=== PATIENT | female | born 1955 | race Caucasian/White ===

== ENCOUNTER 2016-12-14 15:03 | Inpatient (IN) | payer BC ==
--- NOTE | ~2016-12-14 | CN ---
Consultation Report [facility] [address] [place]. [address] NAME: SABRINA DEAN : 59 STATUS : ADM IN PAT#: [id number] AGE: 61 ADM/REG DATE : 12/14/16 MR#: [id number] REPORT SERV DATE: 12/16/16 DICTATED BY: VANESSA BARRY DATE: 12/15/16 REPORT STATUS : Draft TRANSCRIBED BY: MODL DATE: 12/15/16 EP CONSULTATION DATE OF CONSULTATION: 12/15/2016 INDICATIONS: Repetitive monomorphic ventricular tachycardia. HISTORY: The patient is a 61-year-old white female, sees primary care doctor, Dr. Flaquita Elliott, who noted the onset of tachy palpitations three weeks ago. She states they would occasionally result in a cough or give her a warm feeling but a week ago, she was at mass and had an episode that ran away. She wore a Holter monitor, which indicated recurrent episodes of nonsustained ventricular tachycardia. She underwent coronary angiogram 12/15/2016, which showed no fixed coronary disease. Her Holter monitor showed a PVC density of 20%. She has no other medical issues except some mild depression. CURRENT HOME MEDICATIONS: Lorazepam 0.25 at bedtime, Wellbutrin 300 q.a.m., dicyclomine 10 p.r.n., diphenhydramine 25 at bedtime p.r.n., fexofenadine 180 a day, Visine tear drops, meloxicam 15 per day, and Naprosyn 220 a day. ALLERGIES OR INTOLERANCES: Unknown. 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 She has never used tobacco products. She may have a beer occasionally. She does drink two cups of caffeinated coffee per day. FAMILY HISTORY: She has a brother and a sister with hypertension. Both father and mother had hypertension. Father had diabetes. Her parents were killed in a car accident when her mother was 70 and father 74, so there was no known medical history in their older ages. PAST MEDICAL HISTORY/REVIEW OF SYSTEMS: Unremarkable except for the current cardiac history. PHYSICAL EXAMINATION: GENERAL: A 61-year-old white female, pleasant, no acute distress. VITAL SIGNS: Blood pressure 128/80, pulse 60 and regular, respirations 18. SKIN: No xanthelasmas. HEENT: She is normocephalic. There is no pallor. Sclerae white. JVD is not elevated. CHEST: No crackles. CARDIAC: S1 normal, S2 physiologic. ABDOMEN: Soft. EXTREMITIES: Without edema. No clubbing. NEUROLOGIC: No focal deficits. LABORATORY DATA: ECG shows monomorphic PVCs with a transition zone between V2 and V3, suggestive of a right ventricular outflow tract origin. Echocardiogram during PVCs showed a calculated EF of 45%, although I suspect it is larger than that. As mentioned, her Consultation Report [address] [address] NAME: SABRINA DEAN : 59 STATUS : ADM IN [facility]#: [id number] AGE: 61 ADM/REG DATE : 12/14/16 MR#: [id number] REPORT SERV DATE: 12/16/16 DICTATED BY: VANESSA BARRY DATE: 12/15/16 REPORT STATUS : Draft TRANSCRIBED BY: KALYANI DATE: 12/15/16 catheterization showed normal coronaries. DISPOSITION: Plan trial of flecainide, overnight she will be in a monitored setting, further recommendations forthcoming. ARNOL/KALYANI Vanessa Barry M.D. / [id number] CC: Jeremy Espinosa Jr., M.D. [facility]
--- NOTE | ~2016-12-14 | DS ---
Discharge Summary [facility] [address] [place]. [address] NAME: SABRINA DEAN : 59 STATUS : DIS IN PAT#: [id number] AGE: 61 ADM/REG DATE : 12/14/16 MR#: [id number] REPORT SERV DATE: 12/30/16 DICTATED BY: RISHABH NORIEGA DATE: 12/30/16 REPORT STATUS : Draft TRANSCRIBED BY: KALYANI DATE: 12/30/16 Data Collection from hospitalization DISCHARGE DIAGNOSES: 1. Premature ventricular contraction/ventricular tachycardia. 2. Depression. CONSULTATIONS: Tip Barry M.D. PROCEDURES: 1. Cardiac catheterization, 12/15/2016. 2. Ablation/electrophysiology study, 12/19/2016. 3. CT scan of the chest without contrast, 12/19/2016. DISCHARGE MEDICATIONS: 1. Xanax 0.25 mg at bedtime and 0.25 mg x1 dose. 2. Aspirin 81 mg daily. 3. Lipitor 20 mg at bedtime. 4. Wellbutrin XL 300 mg every morning. 5. Mobic 15 mg daily as needed. 6. Bentyl 10 mg daily as needed. 7. Rosalie 180 mg daily as needed. 8. Aleve 220 mg daily as needed. 9. Visine Tears one drop daily. 10.Benadryl 25 mg at bedtime as needed. 11.Coreg 3.125 mg twice a day. 12.Prilosec 20 mg twice a day. CONDITION AT DISCHARGE: Stable. DISPOSITION: The patient was discharged home on a low-sodium, low-cholesterol, cardiac diet with activities as instructed. She would follow up with Dr. Tip Barry on 03/06/2017, and with Dr. Espinosa on 01/17/2017. HOSPITAL COURSE: This is a 61-year-old female who had some chest pain and palpitations. She said that three weeks prior to this admission she began having palpitations that has persisted. She also developed precordial chest pain that was a left-sided pressure-like sensation. Her palpitations and chest pain both worsened over the weekend prior to admission. She just turned in a Holter monitor which revealed recurrent episodes of nonsustained ventricular tachycardia with rates greater than 150 beats per minute. She denied syncope or presyncope. She did have some intermittent shortness of breath with these episodes. The patient was admitted to the hospital at this time for further evaluation and treatment. Upon admission, she was going to be started on heparin weight-based protocol. Echocardiography would be checked for structural heart abnormalities. It was felt that the patient would need to undergo cardiac catheterization and possible percutaneous intervention. The following day, she was taken to the cardiac geochemical laboratory technician where she underwent Discharge Summary [address] [place]. [address] NAME: SABRINA DEAN : 59 STATUS : DIS IN PAT#: [id number] AGE: 61 ADM/REG DATE : 12/14/16 MR#: [id number] REPORT SERV DATE: 12/30/16 DICTATED BY: RISHABH NORIEGA DATE: 12/30/16 REPORT STATUS : Draft TRANSCRIBED BY: KALYANI DATE: 12/30/16 the above-mentioned procedure by Dr. Espinosa. She tolerated this well and there were no complications. She was seen by Dr. Tip Barry regarding repetitive monomorphic ventricular tachycardia. The coronary angiogram showed no fixed coronary disease. Her Holter monitor showed a PVC density of 20%. She had no other medical issues except for some mild depression. ECG showed monomorphic PVCs with a transition zone between V2 and V3 suggestive of right ventricular outflow tract origin. Echocardiogram during PVCs showed calculated ejection fraction of 45%, although it was suspected that it was larger than that. We planned a trial of flecainide and overnight she would be in a monitored setting. Further recommendations will be forthcoming. The following day, she was stable. She still had palpitations and shortness of breath. Urinalysis had revealed E. coli. Bactrim was started. There had been failure of flecainide. Medications were adjusted. On 12/17/2016 she continued to have nonsustained ventricular tachycardia. She had some nausea with Cardizem. She was placed on procainamide and developed hypotension. She was presyncopal with hypotension. On 12/19/2016, she had no chest pain or shortness of breath. She was anxious. Her recurrent nonsustained ventricular tachycardia was refractory to flecainide, refractory to calcium channel doris and beta-doris. She was currently on procainamide. It was felt that the patient may need to undergo electrophysiology study with radiofrequency ablation. She agreed to proceed. The patient was taken to the Electrophysiology Laboratory where she underwent the above-mentioned electrophysiology study and ablation. She tolerated this well, and there were no complications. She was in a sinus rhythm. Discharge planning was performed. On 12/20/2016, she felt well. She was alert and cooperative. Her lungs were clear. She had no edema. She remained in a sinus rhythm. Discharge instructions were given. Due to her improved and stable condition, she was discharged home with the above- stated instructions. Information collected by: Aliya Lacey I submit the above information as my discharge summary. TG/MODL Rishabh Noriega M.D. / [id number] CC: Jeremy Espinosa Jr., M.D. David Wendt, M.D.
[2016-12-14] MEDS ORDERED: MOBIC15 MG PO (18:09)
[2016-12-14] MEDS ORDERED: WELLXL300 PO (18:09)
[2016-12-14] MEDS ORDERED: X25 PO ×2 (18:10→18:12)
[2016-12-14] MEDS ORDERED: BENTYL10 PO (18:10)
[2016-12-14] MEDS ORDERED: ALLEGRA180 PO (18:13)
[2016-12-14] MEDS ORDERED: ALEVE220 MG PO (18:13)
[2016-12-14] MEDS ORDERED: VISINE TEARS15 ML OPH (18:14)
[2016-12-14] MEDS ORDERED: BEN25 PO (18:16)
[2016-12-14 18:26] LABS: BASOPHILS 0.5 %; BASOPHILS ABSOLUTE 0.03 10/3/uL (0.0-0.16); EOSINOPHILS 2.5 %; EOSINOPHILS ABSOLUTE 0.14 10/3/uL (0.0-0.53); HEMATOCRIT 40.7 % (36.0-48.0); HEMOGLOBIN 14.1 g/dL (12.0-16.0); IMMATURE GRANULOCYTES 0.4 %; IMMATURE GRANULOCYTES ABSOLUTE 0.02 10/3/uL (0.0-0.11); LYMPHOCYTES 30.3 %; MANUAL DIFF NO %; MEAN CORPUS HGB CONC 34.6 g/dL (32.0-36.0); MEAN CORPUSCULAR HEMOGLOB 33.3 pg (26.0-34.0); MEAN CORPUSCULAR VOLUME 96.2 fL (80-100); MEAN PLATELET VOLUME 12.5 fL (9.2-13.0); MONOCYTES 9.1 %; MONOCYTES ABSOLUTE 0.51 10/3/uL (0.21-1.20); NEUTROPHILS 57.2 %; NEUTROPHILS ABSOLUTE 3.21 10/3/uL (2.02-8.40); PLATELET COUNT 162 10/3/uL (150-400); RBC DISTRIBUTION WIDTH 12.5 % (12.0-16.0); RED CELL COUNT 4.23 10/6/uL (4.0-5.6); WHITE BLOOD CELLS 5.6 10/3/uL (4.5-10.5)
[2016-12-14 18:46] LABS: ASCORBIC ACID (UR NOT ORDER) NEG (NEG); BILIRUBIN, URINE NEGATIVE (NEG); KETONE, URINE TRACE MG/DL (NEG); LEUKOCYTE ESTERASE(NOT OR LARGE (NEG); WBC (NOT ORDERED) (RFLEX) 7 (0-5)
[2016-12-14 18:53] LABS: BUN (BLOOD UREA NITROGEN) 19 MG/DL (6-23); CALCIUM, SERUM 9.3 MG/DL (8.5-10.4); CHLORIDE, SERUM 108 MMOL/L (96-112); CHOL/HDL RATIO(NOT ORDER) 3.4 (0-5); CHOLESTEROL 162 MG/DL (< 200); CO2 (CARBON DIOXIDE) 29 MMOL/L (24-34); CREATININE 0.76 MG/DL (0.55-1.02); GFR AFRICAN AMERICAN 100 ML/MIN (>=60); GFR NON AFRICAN AMERICAN 86 ML/MIN (>=60); GLUCOSE, SERUM 87 MG/DL (60-99); HDL CHOLESTEROL 47 MG/DL (> 49); LDL CHOLESTEROL 91 MG/DL (< 130); NON-HDL CHOLESTEROL 115 MG/DL (< 160); SODIUM, SERUM 144 MMOL/L (135-148); TRIGLYCERIDE 123 MG/DL (< 150); TROPONIN I <0.02 NG/ML (<0.05)
[2016-12-14 18:59] LABS: POTASSIUM, SERUM 4.3 MMOL/L (3.5-5.3)
[2016-12-14 20:10] LABS: INTERNATIONAL NORMAL RATI 1.1 UNITS (-); PROTIME (NOT ORD) 13.6 SEC (12.0-14.5)
[2016-12-14 20:17] LABS: PARTIAL THROMBO TIME 115.7 SEC (22.5-37.2)
[2016-12-15 04:15] LABS: BUN (BLOOD UREA NITROGEN) 22 MG/DL (6-23); CALCIUM, SERUM 8.4 MG/DL (8.5-10.4); CHLORIDE, SERUM 110 MMOL/L (96-112); CO2 (CARBON DIOXIDE) 27 MMOL/L (24-34); GFR AFRICAN AMERICAN 94 ML/MIN (>=60); GFR NON AFRICAN AMERICAN 81 ML/MIN (>=60); GLUCOSE, SERUM 102 MG/DL (60-99); POTASSIUM, SERUM 3.7 MMOL/L (3.5-5.3); SODIUM, SERUM 145 MMOL/L (135-148)
[2016-12-16 04:01] LABS: BASOPHILS 0.2 %; BASOPHILS ABSOLUTE 0.01 10/3/uL (0.0-0.16); EOSINOPHILS 4.1 %; EOSINOPHILS ABSOLUTE 0.18 10/3/uL (0.0-0.53); HEMOGLOBIN 13.7 g/dL (12.0-16.0); LYMPHOCYTES 29.5 %; LYMPHOCYTES ABSOLUTE 1.31 10/3/uL (0.67-4.30); MEAN CORPUS HGB CONC 34.3 g/dL (32.0-36.0); MEAN CORPUSCULAR HEMOGLOB 33.7 pg (26.0-34.0); MEAN CORPUSCULAR VOLUME 98.3 fL (80-100); MEAN PLATELET VOLUME 12.1 fL (9.2-13.0); MONOCYTES ABSOLUTE 0.62 10/3/uL (0.21-1.20); NEUTROPHILS 52.2 %; NEUTROPHILS ABSOLUTE 2.32 10/3/uL (2.02-8.40); PLATELET COUNT 147 10/3/uL (150-400); RBC DISTRIBUTION WIDTH 12.3 % (12.0-16.0); RED CELL COUNT 4.07 10/6/uL (4.0-5.6); WHITE BLOOD CELLS 4.4 10/3/uL (4.5-10.5)
[2016-12-16 04:02] LABS: MANUAL DIFF NO %
[2016-12-16 04:14] LABS: CALCIUM, SERUM 8.5 MG/DL (8.5-10.4); CHLORIDE, SERUM 113 MMOL/L (96-112); CO2 (CARBON DIOXIDE) 25 MMOL/L (24-34); CREATININE 0.83 MG/DL (0.55-1.02); GFR AFRICAN AMERICAN 89 ML/MIN (>=60); GFR NON AFRICAN AMERICAN 77 ML/MIN (>=60); GLUCOSE, SERUM 111 MG/DL (60-99); POTASSIUM, SERUM 3.9 MMOL/L (3.5-5.3); SODIUM, SERUM 144 MMOL/L (135-148)
[2016-12-16 04:16] LABS: BUN (BLOOD UREA NITROGEN) 18 MG/DL (6-23)
[2016-12-17 04:54] LABS: CALCIUM, SERUM 8.8 MG/DL (8.5-10.4); CHLORIDE, SERUM 110 MMOL/L (96-112); CREATININE 0.81 MG/DL (0.55-1.02); GFR AFRICAN AMERICAN 92 ML/MIN (>=60); GFR NON AFRICAN AMERICAN 79 ML/MIN (>=60); GLUCOSE, SERUM 96 MG/DL (60-99); POTASSIUM, SERUM 4.2 MMOL/L (3.5-5.3); SODIUM, SERUM 143 MMOL/L (135-148)
[2016-12-17 04:56] LABS: BUN (BLOOD UREA NITROGEN) 14 MG/DL (6-23); CO2 (CARBON DIOXIDE) 30 MMOL/L (24-34)
[2016-12-18 05:37] LABS: BUN (BLOOD UREA NITROGEN) 23 MG/DL (6-23); CALCIUM, SERUM 8.8 MG/DL (8.5-10.4); CHLORIDE, SERUM 103 MMOL/L (96-112); CO2 (CARBON DIOXIDE) 24 MMOL/L (24-34); CREATININE 1.07 MG/DL (0.55-1.02); GFR AFRICAN AMERICAN 66 ML/MIN (>=60); GFR NON AFRICAN AMERICAN 57 ML/MIN (>=60); GLUCOSE, SERUM 94 MG/DL (60-99); POTASSIUM, SERUM 4.4 MMOL/L (3.5-5.3); SODIUM, SERUM 137 MMOL/L (135-148)
[2016-12-19 05:02] LABS: CALCIUM, SERUM 8.3 MG/DL (8.5-10.4); CHLORIDE, SERUM 107 MMOL/L (96-112); CO2 (CARBON DIOXIDE) 23 MMOL/L (24-34); CREATININE 0.89 MG/DL (0.55-1.02); GFR AFRICAN AMERICAN 82 ML/MIN (>=60); GFR NON AFRICAN AMERICAN 71 ML/MIN (>=60); GLUCOSE, SERUM 86 MG/DL (60-99); SODIUM, SERUM 132 MMOL/L (135-148)
[2016-12-19 05:03] LABS: BUN (BLOOD UREA NITROGEN) 17 MG/DL (6-23)
[2016-12-19 11:14] LABS: BASOPHILS 0.2 %; BASOPHILS ABSOLUTE 0.01 10/3/uL (0.0-0.16); EOSINOPHILS 0.6 %; EOSINOPHILS ABSOLUTE 0.03 10/3/uL (0.0-0.53); HEMATOCRIT 38.2 % (36.0-48.0); HEMOGLOBIN 13.8 g/dL (12.0-16.0); IMMATURE GRANULOCYTES 0.2 %; IMMATURE GRANULOCYTES ABSOLUTE 0.01 10/3/uL (0.0-0.11); LYMPHOCYTES 11.7 %; LYMPHOCYTES ABSOLUTE 0.63 10/3/uL (0.67-4.30); MEAN CORPUS HGB CONC 36.1 g/dL (32.0-36.0); MEAN CORPUSCULAR HEMOGLOB 33.5 pg (26.0-34.0); MEAN CORPUSCULAR VOLUME 92.7 fL (80-100); MEAN PLATELET VOLUME 11.9 fL (9.2-13.0); MONOCYTES 9.4 %; MONOCYTES ABSOLUTE 0.51 10/3/uL (0.21-1.20); NEUTROPHILS 77.9 %; NEUTROPHILS ABSOLUTE 4.21 10/3/uL (2.02-8.40); PLATELET COUNT 140 10/3/uL (150-400); RBC DISTRIBUTION WIDTH 12.2 % (12.0-16.0); RED CELL COUNT 4.12 10/6/uL (4.0-5.6); WHITE BLOOD CELLS 5.4 10/3/uL (4.5-10.5)
[2016-12-19 11:15] LABS: MANUAL DIFF NO %
[2016-12-20] MEDS ORDERED: ASACOL HD800 MG (10:37)
[2016-12-20] MEDS ORDERED: ASAB (10:38)
[2016-12-20] MEDS ORDERED: COREG3 (10:39)
[2016-12-20] MEDS ORDERED: PRILO (10:40)
[2016-12-20] MEDS ORDERED: ASAB PO (11:13)
[2016-12-20] MEDS ORDERED: COREG3 PO (11:14)
[2016-12-20] MEDS ORDERED: LIPITOR20 (11:14)
[2016-12-20] MEDS ORDERED: PRILO PO (11:15)
== END 2016-12-20 11:50 | disposition home or self-care (01) | DRG 274 ==
LOC: 5NO 15:03 → CCU 12-18 20:37 → SSU1 12-19 13:39
PROVIDERS: Internal Medicine Cardiovascular Disease; Internal Medicine Clinical Cardiac Electrophysiology
PROC: 4A023N7 Measurement of Cardiac Sampling and Pressure, Left Heart, Percutaneous Approach (ICD-10-PCS; principal; 2016-12-15)
PROC: 02583ZZ Destruction of Conduction Mechanism, Percutaneous Approach (ICD-10-PCS; principal; 2016-12-15)
PROC: B2111ZZ Fluoroscopy of Multiple Coronary Arteries using Low Osmolar Contrast (ICD-10-PCS; 2016-12-15)
PROC: B2151ZZ Fluoroscopy of Left Heart using Low Osmolar Contrast (ICD-10-PCS; 2016-12-15)
PROC: 4A023FZ Measurement of Cardiac Rhythm, Percutaneous Approach (ICD-10-PCS; 2016-12-19)
PROC: 4A0234Z Measurement of Cardiac Electrical Activity, Percutaneous Approach (ICD-10-PCS; 2016-12-19)
PROC: 02K83ZZ Map Conduction Mechanism, Percutaneous Approach (ICD-10-PCS; 2016-12-19)
DX: I47.2 Ventricular tachycardia (principal); I42.9 Cardiomyopathy, unspecified; N39.0 Urinary tract infection, site not specified; I25.110 Atherosclerotic heart disease of native coronary artery with unstable angina pectoris; F32.9 Major depressive disorder, single episode, unspecified; I49.3 Ventricular premature depolarization; I47.1 Supraventricular tachycardia; Z82.49 Family history of ischemic heart disease and other diseases of the circulatory system; Z83.3 Family history of diabetes mellitus
CPT/HCPCS: 71250; 80048; 80061; 81001; 82962; 83735; 84443; 84484; 84703; 85025; 85610; 85730; 87077; 87086; 87186; 93005; 93306; 93458; 93654; 99152; A9270-GY; C1732; C1769; C1781; C1887; C1894; J1170; J2250; J2370; J2405; J2550; J2690; J3010